=== PATIENT | female | born 1930 | race Caucasian/White ===

== ENCOUNTER 2019-02-19 10:39 | Day surgery (SDC) | payer MEDICARE ==
[2019-02-18 13:47] VITALS: BMI 29.2
[2019-02-19] MEDS ORDERED: Bupivacaine HCl 0.5%/Epinephrine 1:200,000/PF 30 ml Vial ONE (12:00)
[2019-02-19] MEDS ORDERED: Bacitracin Zinc Ointment 30 gm TUBE ONE (12:00)
[2019-02-19 12:04] LABS: #Eosinphils 0.1 thou/uL (0.0-0.7); #Lymphocytes 1.7 thou/uL (1.20-3.40); #Monocytes 0.4 thou/uL (0.11-0.59); #Neutrophils 4.1 thou/uL (1.40-6.50); %Basophils 0.6 % (0.0-1.0); %Lymphocytes 27.1 % (21.0-51.0); %Monocytes 5.8 % (0.0-10.0); %Neutrophils 64.5 % (42.0-75.0); Hemoglobin 11.7 g/dL (12.0-16.0); Mean Corpuscular HGB CONC 33.5 g/dL (32.0-36.0); Mean Corpuscular Hemoglobin 34.4 pg (27.0-31.0); Mean Platelet Volume 9.4 fL (7.4-10.4); Platelet Count 171 thou/uL (130-400); RBC Distribution Width 14.4 % (11.5-14.5); White Blood Cell (WBC) Count 6.4 thou/uL (4.8-10.8)
[2019-02-19 12:18] LABS: Anion Gap 14 mmol/L (10-20); BUN (Urea Nitrogen) 24 mg/dL (9.8-20.1); Calc. Creatinine Clearance 43 mL/min (70-130); Calcium 9.7 mg/dL (7.8-10.44); Carbon Dioxide 21 mmol/L (23-31); Chloride 107 mmol/L (98-107); Estimated GFR-MDRD 52; Glucose 81 mg/dL (83-110); Potassium 4.5 mmol/L (3.5-5.1); Sodium 137 mmol/L (136-145)
[2019-02-19] MEDS ORDERED: PROPOFOL 200 MG/20 ML VIAL ONE (14:55)
--- NOTE | 2019-02-19 16:36 | OP ---
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 ANESTHESIA: TIVA. PROCEDURES PERFORMED: 1. Removal of Medtronic internal pulse generator. 2. Replacement of internal pulse generator with rechargeable Medtronic module. 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 COMPLICATIONS: None. SUMMARY: Risks and benefits were discussed. Informed consent was obtained. She was taken to the OR, prepped and draped in standard fashion. The pump in the left buttock was easily identified. 0.5% Marcaine with epinephrine was used for skin and subcutaneous anesthesia. Incision was carried out through the skin and then blunt dissection, taking care to identify all leads, wires, and the IPG was identified. The IPG was then taken out of the pocket. The set screws were loosened. The leads were disconnected from the IPG. The new IPG was brought into the field, connected to the electrodes, and both set screws were tightened using the supplied ratcheted screwdriver. A rechargeable Medtronic IPG was then placed in the pocket riding side out. Intraoperative programming and impedance check were performed, indicating that all contacts were viable and functioning properly. All counts were correct x2. Closure was accomplished in layers with interrupted 2-0 Vicryl, and the skin was closed with a running subcuticular 4-0 Rapide. Mastisol, Steri-Strips, 4x4s, and Medipore tape were used for dressing. No complications. Job ID: [id number]
== END 2019-02-19 15:40 | disposition home or self-care (01) ==
LOC: SDC 10:39
PROVIDERS: ATTEND Anesthesiology Pain Medicine
PROC: 0JH70CZ Insertion of Single Array Rechargeable Stimulator Generator into Back Subcutaneous Tissue and Fascia, Open Approach (ICD-10-PCS; principal; 2019-02-19)
DX: T85.192A Other mechanical complication of implanted electronic neurostimulator of spinal cord electrode (lead), initial encounter (principal); G89.4 Chronic pain syndrome; M54.16 Radiculopathy, lumbar region; M48.062 Spinal stenosis, lumbar region with neurogenic claudication; I10 Essential (primary) hypertension; E78.5 Hyperlipidemia, unspecified; M19.90 Unspecified osteoarthritis, unspecified site; I25.2 Old myocardial infarction; Z79.82 Long term (current) use of aspirin; Z79.899 Other long term (current) drug therapy; Z87.891 Personal history of nicotine dependence; Z88.1 Allergy status to other antibiotic agents; Z88.2 Allergy status to sulfonamides; Z88.5 Allergy status to narcotic agent; Z95.5 Presence of coronary angioplasty implant and graft
CPT/HCPCS: 80048; 85025; J0670; J2704

== ENCOUNTER 2019-07-08 14:51 | Inpatient (IN) | payer MEDICARE ==
[2019-07-08] MEDS ORDERED: Pantoprazole 40 MG VIAL ONE (15:42)
[2019-07-08] MEDS ORDERED: Octreotide Acetate 100 MCG/ML VIAL ONE (15:42)
[2019-07-08] MEDS ORDERED: Octreotide Acetate 1,250 MCG in Sodium Chloride 0.9% 250 ML 250 ML IVPB SCH (15:45)
[2019-07-08] MEDS ORDERED: Pantoprazole 80 MG, Admixture Fee 1 EACH in Sodium Chloride 0.9% 100 ML IVPB SCH (15:45)
[2019-07-08 16:43] LABS: #Eosinphils 0.1 thou/uL (0.0-0.7); #Lymphocytes 1.6 thou/uL (1.20-3.40); #Monocytes 0.5 thou/uL (0.11-0.59); #Neutrophils 5.4 thou/uL (1.40-6.50); %Basophils 0.5 % (0.0-1.0); %Eosinophils 0.9 % (0.0-10.0); %Lymphocytes 20.8 % (21.0-51.0); %Neutrophils 71.9 % (42.0-75.0); Hemoglobin 8.8 g/dL (12.0-16.0); Mean Corpuscular Hemoglobin 34.7 pg (27.0-31.0); Mean Platelet Volume 9.4 fL (7.4-10.4); Platelet Count 158 thou/uL (130-400); RBC Distribution Width 17.6 % (11.5-14.5); Red Blood Cell (RBC) Count 2.52 mill/uL (4.20-5.40); White Blood Cell (WBC) Count 7.5 thou/uL (4.8-10.8)
[2019-07-08] MEDS ORDERED: Acetaminophen 325 MG TAB PO PRN ×2 (19:16→21:48)
[2019-07-08] MEDS ORDERED: Ondansetron PF 4 MG/2 ML Vial IVP PRN ×2 (19:16→21:49)
[2019-07-08] MEDS ORDERED: Pantoprazole 80 MG in Sodium Chloride 0.9% 100 ML IVPB SCH (19:16)
[2019-07-08] MEDS ORDERED: Guaifenesin DM 100-10/5 ML UDCUP PO PRN ×2 (19:16→21:49)
[2019-07-08] MEDS ORDERED: Dextrose 5 % And 0.9 % NaCl 1,000 ML IV SCH (19:30)
[2019-07-08 19:39] LABS: Hemoglobin 9.1 g/dL (12.0-16.0)
--- NOTE | 2019-07-08 19:48 | HP ---
REASON FOR ADMISSION: GI bleed. HISTORY OF PRESENT ILLNESS: Please note majority of this history is obtained by talking to ER physician as the patient is not fully oriented at present. She was at [facility] and recuperating after sustaining a T12 compression fracture. She [facility] Code Green [facility] not being herself with increasing weakness and alertness. The full workup was negative per ER physician's notes. This morning, she had 3 episodes of bloody stools. She felt weak and lightheaded. Decision was made to transfer her here for higher level of care. Currently, the patient is not in any distress, but very lethargic. Her son and two other family members are at bedside. Has no complaints of abdominal pain, nausea, or vomiting at present. The patient also received a unit of packed cell in the ER. PAST MEDICAL AND SURGICAL HISTORY: History of dementia, hypertension, dyslipidemia, coronary artery disease, history of atrial fibrillation, spine stimulator, osteoarthritis, bilateral knee replacements, GERD, cardiac cath in 2005 with stent, back surgery in 2007, right hip replacement in 2008, cholecystectomy in 1989. No recent colonoscopy or EGD per family. CURRENT MEDICATIONS: The patient is on: 1. Aspirin 81 mg p.o. daily. 2. Plavix 75 mg p.o. daily. 3. K-Dur 20 mEq p.o. daily. 4. Lasix 80 mg daily. 5. Toprol-XL 25 mg daily. 6. Ranexa 1000 mg twice daily. 7. Imdur extended release 30 mg twice daily. 8. Zocor 10 mg daily. PERSONAL HISTORY: Does not abuse alcohol or drugs. No history of smoking. The patient has had recurrent falls from last 6 to 8 months now. FAMILY HISTORY: Both parents are . Mother had cancer. REVIEW OF SYSTEMS: Cannot be obtained as the patient is not fully oriented. PHYSICAL EXAMINATION: GENERAL: The patient is an 88-year-old female who is currently not in any acute distress, but is lethargic. VITAL SIGNS: Blood pressure 110/62, pulse 76 per minute, respiratory rate 18 per minute, temperature 98.1 degrees Fahrenheit, saturating 97% on 2 L nasal cannula. NECK: Supple. No elevated JVD. HEENT: Eyes; extraocular muscles intact. Pupils reacting to light. Oral cavity, mucous membranes are dry. No exudates or congestion CARDIOVASCULAR: S1 and S2 heard. Irregular rhythm. RESPIRATORY: Air entry 1+ bilateral. Scattered rhonchi plus. No rales or wheezes. ABDOMEN: Soft. Bowel sounds heard. No tenderness, rigidity, or guarding. EXTREMITIES: Mild peripheral edema in lower extremities. No calf tenderness. VASCULAR SYSTEM: Peripheral pulses 1+ bilateral. No ischemic ulcerations or gangrene. CENTRAL NERVOUS SYSTEM: No gross focal deficits noted. The patient is seen moving all extremities. She is not oriented at present. PSYCHIATRIC: Cannot be accurately assessed as the patient is lethargic at present. LABORATORY DATA: Chest x-ray done shows cardiomegaly with mild pulmonary vascular congestion. BUN 44, creatinine 1.5, serum glucose 136. Liver enzymes within normal limits. Albumin is 3.5. Stool occult blood done is positive. PT/INR 15 and 1.2, PTT 34. White count of 8, H and H 7 and 22, platelet count of 171. Repeat H and H after 1 unit of packed cell, 8.8 and 25.8. CLINICAL IMPRESSION AND PLAN: The patient will be admitted to medical floor for GI bleed with acute blood loss anemia, acute kidney injury. She is lethargic and has acute metabolic encephalopathy with underlying dementia contributing with GI bleed now. Aspiration and fall precautions will be followed. Per family, the patient was ambulating with a walker at the [facility]. We will continue her Imdur, Toprol and she will be on Protonix drip. We will have H and H q.6 hourly. D5 water at 100 mL per hour. The patient's systolic blood pressure is around 100. If her H and H drop to less than 7 g, she will be transfused again. She will be on clear liquid diet for now. The patient is do not attempt to resuscitate, this was discussed with the patient's son at bedside, Mr. Azar Urbina. If she has significant drop in her hemoglobin with ongoing bleed, the patient likely will need upper endoscopy. Dr. Woods is on- call for Gastroenterology and will be consulted. Job ID: [id number] MTDD
[2019-07-08] MEDS ORDERED: Isosorbide Mononitrate (ER) 30 MG TAB PO SCH (21:00)
[2019-07-08 21:04] VITALS: BMI 31.7
[2019-07-08] MEDS: Isosorbide Mononitrate (ER) 30 MG TAB PO SCH (21:53)
[2019-07-08] MEDS: Dextrose 5 % And 0.9 % NaCl 1,000 ML IV SCH (22:01)
[2019-07-09] MEDS: Enoxaparin Sodium 30 MG/0.3 ML SYRINGE SC SCH (08:11)
[2019-07-09] MEDS: Isosorbide Mononitrate (ER) 30 MG TAB PO SCH ×2 (08:11→20:40)
[2019-07-09] MEDS: Dextrose 5 % And 0.9 % NaCl 1,000 ML IV SCH ×2 (08:11→18:37)
[2019-07-09] MEDS: Oxybutynin 5 MG TAB PO SCH (08:22)
[2019-07-09] MEDS ORDERED: Enoxaparin Sodium 30 MG/0.3 ML SYRINGE SC SCH (09:00)
[2019-07-09] MEDS ORDERED: Oxybutynin 5 MG TAB PO SCH (09:00)
[2019-07-09 09:16] LABS: ALT (SGPT) 8 U/L (8-55); AST (SGOT) 14 U/L (5-34); Albumin 3.4 g/dL (3.4-4.8); Alkaline Phosphatase 98 U/L (40-110); Anion Gap 16 mmol/L (10-20); BUN (Urea Nitrogen) 47 mg/dL (9.8-20.1); Bilirubin, Total 0.8 mg/dL (0.2-1.2); Calc. Creatinine Clearance 30 mL/min (70-130); Calcium 8.7 mg/dL (7.8-10.44); Carbon Dioxide 22 mmol/L (23-31); Chloride 102 mmol/L (98-107); Estimated GFR-MDRD 32; Globulin 2.5 g/dL (2.4-3.5); Glucose 135 mg/dL (83-110); Potassium 4.6 mmol/L (3.5-5.1); Protein, Total 5.9 g/dL (6.0-8.3); Sodium 135 mmol/L (136-145)
--- NOTE | 2019-07-09 14:05 | PDOC.HOSPP ---
- Subjective Encounter Date: 07/09/19 Encounter Time: 11:05 Subjective: 88 y/o female with HTN, CAD. afib who was transfered from [facility] due to acute mental status change associated with generalized weakness and bloody stools associated with acute drop in HB. Patient was undertaking rehabilitation there after a recent T12 fracture. Feeling better. No BM since transfer. - Objective Vital Signs & Weight: Vital Signs (12 hours) Temp Pulse Resp BP Pulse Ox 07/09/19 12:00 98.0 F 59 L 22 H 109/71 95 07/09/19 08:00 97 07/09/19 07:56 97.5 F L 89 22 H 111/61 97 07/09/19 07:18 100 07/09/19 04:45 97.8 F 66 20 118/65 100 Weight Weight 162 lb 7.691 oz Result Diagrams: 07/08/19 19:33 07/09/19 08:20 Hospitalist ROS - Medication Medications: Active Medications Generic Name Dose Route Start Last Admin Trade Name Freq PRN Reason Stop Dose Admin Enoxaparin Sodium 30 mg 07/09/19 09:00 07/09/19 08:11 Lovenox SC 30 mg 0900 BALBIR Administration Dextrose/Sodium Chloride 1,000 mls @ 100 mls/hr 07/08/19 22:00 07/09/19 08:11 D5 0.9% Ns IV 1,000 mls .Q10H BALBIR Administration Isosorbide Mononitrate 30 mg 07/08/19 21:00 07/09/19 08:11 Imdur Er PO 30 mg BID BALBIR Administration Metoprolol Succinate 25 mg 07/09/19 09:00 07/09/19 08:12 Toprol Xl PO 25 mg DAILY BALBIR Administration Oxybutynin Chloride 10 mg 07/09/19 09:00 07/09/19 08:22 Ditropan PO 10 mg DAILY BALBIR Administration Ranolazine 1,000 mg 07/08/19 21:00 07/09/19 08:12 Ranexa PO 1,000 mg BID BALBIR Administration - Exam General Appearance: awake alert Eye: anicteric sclera ENT: normocephalic atraumatic Neck: supple, no JVD Heart: irregular, murmur present Respiratory: no ronchi, normal chest expansion Respiratory - other findings: fair air entry bilaterally Gastrointestinal: soft, non-tender, non-distended, normal bowel sounds Extremities: no cyanosis Extremities - other findings: mild bilateral leg edema noted Neurological: cranial nerve grossly intact, no focal deficits Psychiatric - other findings: oriented to person and place at least. some memory lapses noted Hosp A/P (1) GI bleed Code(s): K92.2 - GASTROINTESTINAL HEMORRHAGE, UNSPECIFIED Status: Acute (2) BEAR (acute kidney injury) Code(s): N17.9 - ACUTE KIDNEY FAILURE, UNSPECIFIED Status: Acute (3) Dementia Code(s): F03.90 - UNSPECIFIED DEMENTIA WITHOUT BEHAVIORAL DISTURBANCE Status: Acute (4) Paroxysmal atrial fibrillation Code(s): I48.0 - PAROXYSMAL ATRIAL FIBRILLATION Status: Acute (5) CAD (coronary artery disease) Code(s): I25.10 - ATHSCL HEART DISEASE OF [place] CORONARY ARTERY W/O ANG PCTRS Status: Chronic (6) GERD (gastroesophageal reflux disease) Code(s): K21.9 - GASTRO-ESOPHAGEAL REFLUX DISEASE WITHOUT ESOPHAGITIS Status: Chronic Qualifiers: Esophagitis presence: without esophagitis Qualified Code(s): K21.9 - Gastro -esophageal reflux disease without esophagitis (7) Hypertension Code(s): I10 - ESSENTIAL (PRIMARY) HYPERTENSION Status: Chronic (8) Acute metabolic encephalopathy Code(s): G93.41 - METABOLIC ENCEPHALOPATHY Status: Acute - Plan Continue PPI/octreotide and gentle IVF. Monitor closely for fluid overload given history of CHF. Awaiting GI evaluation Monitor H/H and transfuse as needed Monitor renal function and electrolytes.
--- NOTE | 2019-07-09 14:34 | CON ---
DATE OF CONSULTATION: 07/09/2019 REASON FOR CONSULTATION: Bloody stool. HISTORY OF PRESENT ILLNESS: Ms. Mixon is an 88-year-old woman, who was admitted from [facility] with reported GI bleeding. Reportedly, she had three episodes of bloody stool at [facility]. She was subsequently brought to the emergency room and transferred to this facility. The patient was initially confused and encephalopathic. Currently, she is alert and oriented. She does not have any recollection of this event nor of any GI bleeding. Currently, she denies having any nausea, vomiting, or abdominal pain. Thus far this admission since overnight, she has not had any further hematochezia. She denies having abdominal pain. She did receive 1 unit of RBC transfusion yesterday in the ER. Her blood count has remained stable since then. PAST MEDICAL HISTORY: 1. Coronary artery disease. 2. History of atrial fibrillation. 3. Chronic back pain with pain stimulator. 4. Cardiac stent placement. 5. Right hip replacement. 6. Status post cholecystectomy. 7. Hypertension. 8. Reported history of dementia. MEDICATIONS: Prior to admission include; 1. Aspirin. 2. Plavix. 3. K-Dur. 4. Lasix. 5. Toprol. 6. Ranexa. 7. Imdur. 8. Zocor. ALLERGIES: SULFA. SOCIAL HISTORY: The patient is a resident at the [facility]. No known tobacco or alcohol usage. FAMILY HISTORY: Negative for any known GI problem, liver disease, or GI malignancy. REVIEW OF SYSTEMS: Ten-point review of system was otherwise negative. Reliability questioned. PHYSICAL EXAMINATION: VITAL SIGNS: Temperature is 98.0, blood pressure 109/71, and pulse is 59. GENERAL: She is alert and conversant, in no distress. HEENT: Shows anicteric sclerae. Oropharynx is moist. NECK: Supple. CV: Shows normal S1 and S2. Regular rate and rhythm. CHEST: Shows a breath sounds. ABDOMEN: Soft and mildly protuberant, but no distention. No tympany. There is no tenderness. She has active bowel sounds. EXTREMITIES: Shows no edema. LABORATORY DATA: WBCs 7.5, hemoglobin 9.1 (8.8 yesterday, lowest is 7.3 prior to 1 unit of RBC transfusion yesterday), and platelet count 158. Electrolytes within normal range. Creatinine 1.52. LFT is normal. Albumin is 3.4. ASSESSMENT: 1. The patient presented with reported hematochezia characterized as three episodes of bloody stool prior to admission. The patient has no further bleeding since then. She does not have any abdominal pain. Most likely, she had limited diverticular bleeding that has since resolved. 2. Anemia from acute gastrointestinal blood loss, stable. RECOMMENDATION: 1. No plan on GI intervention endoscopy as bleeding clinically has stopped. 2. Can resume Plavix tomorrow if she continues to do well without evidence of rebleed. 3. Overall conservative management, we will follow. We will resume diet for now. Job ID: [id number]
[2019-07-09] MEDS ORDERED: FLU VACC TS2019-20(65YR UP)/PF 180 MCG/0.5 ML SYRINGE IM ONE (21:00)
[2019-07-10 05:21] LABS: Anion Gap 14 mmol/L (10-20); BUN (Urea Nitrogen) 48 mg/dL (9.8-20.1); Calc. Creatinine Clearance 33 mL/min (70-130); Calcium 8.3 mg/dL (7.8-10.44); Carbon Dioxide 21 mmol/L (23-31); Chloride 104 mmol/L (98-107); Estimated GFR-MDRD 36; Glucose 130 mg/dL (83-110); Potassium 4.4 mmol/L (3.5-5.1); Sodium 135 mmol/L (136-145)
[2019-07-10 05:43] LABS: Hemoglobin 7.6 g/dL (12.0-16.0); Mean Corpuscular HGB CONC 33.2 g/dL (32.0-36.0); Mean Corpuscular Hemoglobin 34.5 pg (27.0-31.0); Mean Platelet Volume 8.9 fL (7.4-10.4); Platelet Count 146 thou/uL (130-400); RBC Distribution Width 18.2 % (11.5-14.5)
[2019-07-10] MEDS: Dextrose 5 % And 0.9 % NaCl 1,000 ML IV SCH (06:31)
[2019-07-10] MEDS: Enoxaparin Sodium 30 MG/0.3 ML SYRINGE SC SCH (08:34)
[2019-07-10] MEDS: Oxybutynin 5 MG TAB PO SCH (08:35)
[2019-07-10] MEDS: Isosorbide Mononitrate (ER) 30 MG TAB PO SCH ×2 (08:35→20:12)
--- NOTE | 2019-07-10 11:26 | CT ---
HEAD CT NONCONTRAST: Date: 07/10/19 INDICATION: Stroke. FINDINGS: There is parenchymal atrophy with compensatory dilatation of the ventricular system. Mild multifocal hypoattenuation of the cerebral parenchyma indicates microvascular ischemic disease. No hemorrhage or mass effect. Age-indeterminate lacunar infarcts are seen at the bilateral basal ganglia. IMPRESSION: 1. No acute intracranial hemorrhage or mass effect. 2. Multifocal age-indeterminate lacunar infarctions superimposed upon microvascular ischemic disease of the cerebral white matter. Phone call placed to ER physician, Vipul Hein, at 1107 hours on 07/10/19. CODE CR.
--- NOTE | 2019-07-10 11:30 | CT ---
CTA HEAD WITH AND WITHOUT CONTRAST: CTA NECK WITH AND WITHOUT CONTRAST: INDICATION: Level 1 stroke. Last seen normal 15 minutes ago. Unable to answer questions. Choppy speech. Bilateral weakness, patient is weaker on the right side than the left. COMPARISON: None. TECHNIQUE: CT angiogram of the head and neck are performed in the axial plane. Three-dimensional reformatted erin ges are submitted for interpretation. FINDINGS: POST CONTRAST CT BRAIN: Pathologic enhancement: No pathologic enhancement the brain. POST CONTRAST CT SOFT TISSUE NECK: Sinuses: Adequate aeration of the paranasal sinuses and mastoid air cells. Orbits: Bilateral ocular lenses implants are appropriately located. Both globes are intact. Retrobulb ar fat is preserved. Symmetric attenuation the optic nerves and ocular rectus muscles. Salivary glands:Symmetric attenuation of the parotid and submandibular glands. Thyroid gland: Heterogeneous thyroid gland. There is a dominant hypodensity in the right thyroid lobe , measuring 1.8 cm. Incomplete evaluation. Lymph nodes: No evidence of lymphadenopathy by size criteria. Paraspinal muscles: Symmetric attenuation of the sternocleidomastoid muscles. Appropriate attenuation of the paraspinal muscles. Cervical spine:Vertebral body height is maintained. No fracture. There are varying degrees of central canal stenosis and neural foraminal narrowing. Limited evaluation by technique. Upper mediastinum and lung apices: Upper mediastinum is unremarkable. There are bilateral pleural eff usions. Lung parenchymal changes may be chronic. Superimposed acute infiltrate or edema cannot be excluded. CTA OF THE BRAIN: Intracranial internal carotid arteries: Asymmetric prominence of the left cavernous and left paraclin oid internal carotid artery. No significant stenosis. Anterior circulation: Appropriate enhancement and luminal diameter of the A1 and M1 segments. Proxima l A2 segments and proximal MCA branches have appropriate enhancement and luminal diameter. Intracranial vertebral arteries: Appropriate enhancement and luminal diameter. Posterior circulation: Appropriate enhancement and luminal diameter of the left and right P1 segments . CTA OF THE NECK: Right carotid artery: Innominate artery origin has appropriate enhancement and luminal diameter. Ther e is atherosclerosis with short segment severe stenosis involving the right carotid bifurcation and proximal internal carotid artery. Based upon NASCET criteria there is 69% stenosis. Left carotid: Atherosclerosis at the origin of the left carotid artery. There is evidence of previous carotid endarterectomy. There is no evidence of hemodynamically significant stenosis in the left carotid artery. Subclavian arteries: Patent. Vertebral arteries: Patent throughout their course in the neck. Right vertebral artery is dominant. L eft vertebral artery originates from the arch. IMPRESSION: 1. Moderate to severe stenosis involving the right carotid bifurcation and proximal internal card art kenny, based upon NASCET criteria. 2. No significant stenosis at the level of the [place]. 3. Asymmetric prominence of the intracranial left internal carotid artery, of doubtful significance. Results of study discussed with Dr. Hein on 07/10/2019 at 11:29 a.m. CODE CR Transcribed Date/Time: 07/10/2019 11:42 AM
--- NOTE | 2019-07-10 12:04 | PDOC.HOSPP ---
- Subjective Encounter Date: 07/10/19 Encounter Time: 11:59 Subjective: 88 y/o female with HTN, CAD. afib who was transferred from [facility] due to acute mental status change associated with generalized weakness and bloody stools associated with acute drop in HB. Patient was undertaking rehabilitation there after a recent T12 fracture. Patient who was conversational and feeling well, was later found to be unresponsive and with dysphasia. Code Stroke was called but subsequent Ct head showed no acute pathology though chronic white matter disease and prior lacunar infarct were noted. She was transfered to stroke unit. She seem to obey command inconsistently and still has some receptive and expressive aphasia. On re evaluation, she is more awake and talking more. Also she is obeying command consistently. Relatives at bedside reported significant improvement. they however reported similar episode at [facility] prior to transfer over here. - Objective Vital Signs & Weight: Vital Signs (12 hours) Temp Pulse Resp BP Pulse Ox 07/10/19 10:58 97.8 F 73 18 138/80 95 07/10/19 08:00 97.7 F 70 20 134/79 99 Weight Admit Weight 162 lb 7.691 oz Weight 162 lb 7.691 oz I&O: 07/09/19 07/10/19 07/11/19 06:59 06:59 06:59 Intake Total 240 360 Balance 240 360 Result Diagrams: 07/10/19 05:31 07/10/19 05:02 Additional Labs: Accuchecks 07/10/19 10:55 POC Glucose 198 H Hospitalist ROS - Medication Medications: Active Medications Generic Name Dose Route Start Last Admin Trade Name Chantal PRN Reason Stop Dose Admin Enoxaparin Sodium 30 mg 07/09/19 09:00 07/10/19 08:34 Lovenox SC 30 mg 0900 BALBIR Administration Isosorbide Mononitrate 30 mg 07/08/19 21:00 07/10/19 08:35 Imdur Er PO 30 mg BID BALBIR Administration Metoprolol Succinate 25 mg 07/09/19 09:00 07/10/19 08:35 Toprol Xl PO 25 mg DAILY BALBIR Administration Oxybutynin Chloride 10 mg 07/09/19 09:00 07/10/19 08:35 Ditropan PO 10 mg DAILY BALBIR Administration Pantoprazole Sodium 40 mg 07/10/19 09:00 07/10/19 08:36 Protonix PO 40 mg DAILY BALBIR Administration Ranolazine 1,000 mg 07/08/19 21:00 07/10/19 08:35 Ranexa PO 1,000 mg BID BALBIR Administration - Exam General - other findings: lethargic ENT: normocephalic atraumatic Neck: supple Heart: RRR, murmur present Respiratory - other findings: fair air entry bilaterally Gastrointestinal: soft, non-tender, non-distended, normal bowel sounds Extremities: no cyanosis Extremities - other findings: trace feet edema bilaterally Neurological: cranial nerve grossly intact, speech deficit Neurological - other findings: No facial droop. moves all limbs spontaneously and with stimulation. Hosp A/P (1) TIA (transient ischemic attack) Code(s): G45.9 - TRANSIENT CEREBRAL ISCHEMIC ATTACK, UNSPECIFIED Status: Acute (2) Atherosclerosis of right carotid artery Code(s): I65.21 - OCCLUSION AND STENOSIS OF RIGHT CAROTID ARTERY Status: Acute (3) GI bleed Code(s): K92.2 - GASTROINTESTINAL HEMORRHAGE, UNSPECIFIED Status: Acute (4) BEAR (acute kidney injury) Code(s): N17.9 - ACUTE KIDNEY FAILURE, UNSPECIFIED Status: Acute (5) Dementia Code(s): F03.90 - UNSPECIFIED DEMENTIA WITHOUT BEHAVIORAL DISTURBANCE Status: Acute (6) Paroxysmal atrial fibrillation Code(s): I48.0 - PAROXYSMAL ATRIAL FIBRILLATION Status: Acute (7) CAD (coronary artery disease) Code(s): I25.10 - ATHSCL HEART DISEASE OF [place] CORONARY ARTERY W/O ANG PCTRS Status: Chronic (8) GERD (gastroesophageal reflux disease) Code(s): K21.9 - GASTRO-ESOPHAGEAL REFLUX DISEASE WITHOUT ESOPHAGITIS Status: Chronic Qualifiers: Esophagitis presence: without esophagitis Qualified Code(s): K21.9 - Gastro -esophageal reflux disease without esophagitis (9) Hypertension Code(s): I10 - ESSENTIAL (PRIMARY) HYPERTENSION Status: Chronic (10) Acute metabolic encephalopathy Code(s): G93.41 - METABOLIC ENCEPHALOPATHY Status: Acute - Plan Will restart plavix. Monitor H/H Start TIA protocol DC IVF Consult Neurology and vascular surgery Monitor renal function and electrolytes.
[2019-07-10 12:22] LABS: Hemoglobin 7.8 g/dL (12.0-16.0); Mean Corpuscular Hemoglobin 34.8 pg (27.0-31.0); Mean Platelet Volume 8.7 fL (7.4-10.4); Platelet Count 142 thou/uL (130-400); Red Blood Cell (RBC) Count 2.23 mill/uL (4.20-5.40)
[2019-07-10 12:27] LABS: INR-International Normal Ratio 1.3; PTT 33.8 SEC (22.9-36.1); Prothrombin Time 16.2 SEC (12.0-14.7)
[2019-07-10] MEDS ORDERED: Clopidogrel Bisulfate 75 MG TAB PO SCH (12:30)
[2019-07-10 12:51] LABS: ALT (SGPT) 9 U/L (8-55); AST (SGOT) 12 U/L (5-34); Albumin 3.3 g/dL (3.4-4.8); Alkaline Phosphatase 92 U/L (40-110); Anion Gap 13 mmol/L (10-20); BUN (Urea Nitrogen) 47 mg/dL (9.8-20.1); Bilirubin, Total 0.6 mg/dL (0.2-1.2); CK (CPK) 20 U/L (29-168); Calc. Creatinine Clearance 35 mL/min (70-130); Calcium 8.3 mg/dL (7.8-10.44); Carbon Dioxide 23 mmol/L (23-31); Chloride 103 mmol/L (98-107); Estimated GFR-MDRD 39; Globulin 1.9 g/dL (2.4-3.5); Glucose 129 mg/dL (83-110); Potassium 4.4 mmol/L (3.5-5.1); Protein, Total 5.2 g/dL (6.0-8.3); Sodium 135 mmol/L (136-145)
[2019-07-10 12:52] LABS: Band 8 % (5-11); Eosinophils 5 % (0-10); Lymphocytes 16 % (21-51); MDiff Complete? YES; Macrocytosis SLIGHT = 6-15 cells (100X) (0-5/hpf); Metamyelocyte 1 % (0-0); Monocytes 5 % (0-10); Neutrophil 65 % (42-75); Nucleated RBC 2 % (0); Ovalocytes SLIGHT = 2-5 cells (100X) (0-1/hpf); Platelet Morphology Comment Appears Adequate; Polychromasia MODERATE = 3-4 cells (100X) (0-2/hpf); Tear Drops SLIGHT = 2-5 cells (100X) (0-1/hpf); White Blood Cell (WBC) Count 6.4 thou/uL (4.8-10.8)
[2019-07-10 13:13] LABS: CKMB 1.7 ng/mL (0-6.6)
--- NOTE | 2019-07-10 14:00 | PRG ---
DATE OF SERVICE: 07/10/2019 SUBJECTIVE: Ms. Mixon has had no further evidence of bleeding. She has remained hemodynamically stable. She had some change in mental status and there was suspicion for possible stroke. She had a CT head, which shows some age-indeterminate lacunar infarcts. She was moved to the stroke floor. Plavix was restarted. Neurologic and Vascular Surgery consultations are pending. She has no abdominal pain. Speech evaluation is pending, but per nursing, she has been taking liquids without difficulty. PHYSICAL EXAMINATION: VITAL SIGNS: Temperature 97.3, pulse 70, blood pressure 138/80, and 94% oxygen saturation on room air. GENERAL: No acute distress. HEART: Regular rate and rhythm. LUNGS: Clear to auscultation bilaterally. ABDOMEN: Nondistended. Bowel sounds present. Soft and nontender to palpation. EXTREMITIES: No peripheral edema. LABORATORY STUDIES: Hemoglobin stable at 7.8, WBC 6.4, platelets 142. INR 1.3. Sodium 135, potassium 4.4, BUN 47, creatinine 1.30. Troponin 0.223, CK-MB only 1.7, CK only 20. Total bilirubin 0.6, alkaline phosphatase 92, AST 12, ALT 9. ASSESSMENT AND PLAN: 1. Lower gastrointestinal bleeding, likely represented self-limited diverticular bleed, now resolved. 2. Anemia from acute gastrointestinal blood loss, stable today. No plan on GI intervention or endoscopy. There is no further evidence of bleeding. Okay with resuming the Plavix today. GI will sign off, but please call back anytime with questions or concerns. Job ID: [id number]
[2019-07-10] MEDS ORDERED: Iopamidol-370 76% 500 ML 1 ML ONE (15:53)
--- NOTE | 2019-07-10 17:33 | EKG ---
Test Reason : POST CODE GREEN Blood Pressure : / mmHG Vent. Rate : 066 BPM Atrial Rate : 066 BPM P-R Int : 272 ms QRS Dur : 120 ms QT Int : 450 ms P-R-T Axes : 078 109 078 degrees QTc Int : 471 ms Sinus rhythm with marked sinus arrhythmia with 1st degree A-V block Rightward axis Low voltage QRS Non-specific intra-ventricular conduction delay Nonspecific ST abnormality Abnormal ECG When compared with ECG of 29-SEP-2016 06:43, Premature ventricular complexes are no longer Present QRS duration has increased Non-specific change in ST segment in Inferior leads Confirmed by DR. Jenelle MONTGOMERY (3) on 07/10/2019 5:33:06 PM Referred By: LESA Confirmed By:DR. Jenelle MONTGOMERY
[2019-07-10 19:44] VITALS: BP 105/66; TEMP 97.2
--- NOTE | 2019-07-10 21:24 | CON ---
DATE OF CONSULTATION: 07/10/2019 CONSULTING PHYSICIAN: Hospitalist Service. IMPRESSION: 1. Transient encephalopathy of uncertain etiology. 2. Recent new onset of bloody diarrhea. 3. Congestive heart failure. 4. T12 compression fracture. PLAN: Restart antiplatelet therapy, if okay with GI. HISTORY OF PRESENT ILLNESS: Ms. Mixon is an 88-year-old woman who was living at home independently prior to her admission to the [facility]. She apparently suffered a fracture T12 and was in pain. She has had some decompensation of her heart failure while she was there and was shifted over for further treatment. She was found to have bloody stools. Her H and H were down. She was conversant yesterday and started to suddenly decompensate. She got more lethargic and was not responding appropriately. Her neurologic exam at that time showed no focal deficits, but more of a generalized weakness pattern and confusion. Things have improved since yesterday, but she has not returned to her baseline. Her grandson reports that she is usually quite mentally sharp. She gets around the house independently, although she is a bit unsteady. Since admission, she had an echocardiogram, which showed ejection fraction of 30% to 35%. Her CTA showed some stenosis in the right bulb around 70%. CT of the brain only showed some chronic small-vessel ischemic changes. Vital signs have been stable and she is otherwise afebrile. PAST MEDICAL HISTORY: Hypertension, coronary artery disease, atrial fibrillation. FAMILY HISTORY: Noncontributory. ALLERGIES: SULFA. SOCIAL HISTORY: No tobacco or alcohol. REVIEW OF SYMPTOMS: Ten system review of systems otherwise negative. PHYSICAL EXAMINATION: GENERAL: She is a well-nourished elderly lady, in no acute distress. VITAL SIGN: Stable. She is afebrile. HEENT: Pupils equal and reactive. Conjunctivae clear. Oropharynx clear. Cranium, normocephalic and atraumatic. NECK: Supple, no lymphadenopathy. EXTREMITIES: No cyanosis, clubbing, or edema. NEUROLOGIC: She was alert and cooperative. She was oriented to person, but not to the place and current circumstances. She did recognize her grandson. She had fluent and clear speech. She followed commands reasonably well. She had no facial asymmetry. She had good public relations account executive strength bilaterally. There was no fix or drift noted. Sensation was intact to touch. No abnormal movements were seen. IMAGING STUDIES: EKG shows a sinus rhythm with first-degree AV block. SUMMARY: This is a somewhat frail elderly lady who has been in the hospital and ill for 2 weeks now. She had some cognitive decompensation yesterday without any definite focal findings. Her exam at this point only shows some mild confusion. I am not convinced that she had a TIA, I would continue antiplatelet therapy, statin and I feel that her workup is complete. Job ID: [id number]
[2019-07-11] MEDS ORDERED: Clopidogrel Bisulfate 75 MG TAB PO SCH (09:00)
--- NOTE | 2019-07-11 14:56 | CON ---
DATE OF CONSULTATION: 07/10/2019 REQUESTING PHYSICIAN: Dr. Cunningham. PRIMARY CARE PHYSICIAN: Dr. Kaiden Ocampo. CHIEF COMPLAINT: Syncope. HISTORY OF PRESENT ILLNESS: The patient is an 88-year-old woman who is labeled as having some dementia. She has multiple medical problems including coronary artery disease, hypertension, atrial fibrillation, and was in [facility], convalescing after a vertebral compression fracture. Evidently, screening lab work had shown her hemoglobin starting to drift down and then after she had a syncopal episode following bloody bowel movements, her hemoglobin was noted to be significantly down. As she was coming to, her speech was somewhat dysarthric which once she was hemodynamically stabilized, prompted a carotid evaluation. The patient does not have a clear recollection of the event, but to the best of her knowledge, had no antecedent focal deficits such as dysarthria, amaurosis, or extremity weakness or paresthesias. PAST MEDICAL HISTORY: Significant for coronary artery disease, atrial fibrillation, hypertension. She has had bilateral knee replacements, a right hip replacement, cholecystectomy, spinal stimulator, and she has had a recent T12 compression fracture. MEDICATIONS: On transfer here were 1. Baby aspirin. 2. Plavix. 3. Lasix 80 mg a day. 4. K-Dur 20 mEq a day. 5. Toprol-XL 25 mg a day. 6. Imdur 30 mg b.i.d. 7. Zocor 10 mg a day. 8. Ranexa 1000 mg b.i.d. The patient does not smoke. By report, her mother had cancer. REVIEW OF SYSTEMS: Was difficult to obtain. I was not able to elicit a clear-cut history of TIAs, but in the midst of that questioning, the patient began talking about one of her children going to [employer] every Sunday with her family starting at 8 o'clock and staying there all day long and how proud she was of them on. PHYSICAL EXAMINATION: VITAL SIGNS: 5 feet tall, 162-1/2 pounds. Her heart rate was in the 70s, blood pressure 105/66, temperature 97.2, O2 saturations 98% on 2.5 L nasal cannula. She had clear breath sounds and irregular rate and rhythm. I heard no obvious carotid bruits, but I could get her to cooperate with holding her breath while I was listening to her carotids. EXTREMITIES: She was able to squeeze both hands and plantar flex both ankles to command. NEUROLOGIC: I was not able to get her to do cranial nerve testing, although I did not observe any obvious deficits. LABORATORY DATA: Her baseline hemoglobin in mid June was in the 9, on of this month it was 8, and on the , it was 7.3, after transfusion came up to the high 8s to low 9s, but this morning was back down to 7.6. Her BUNs were in the mid upper 40s, creatinine 1.3 to 1.5 range, glucose 129. Her BNP was 2087. IMAGING STUDIES: Chest x-ray showed fairly massive cardiomegaly with pulmonary edema, blunting of the right costophrenic angle. The left diaphragm was obscured and there was some fluid in the fissures. CT scan of her head by report showed multifocal lacunar infarcts and superimposed microvascular disease but no obvious acute events. CT angiography showed some minimal disease in the left carotid system, heavy plaque in the right carotid bulb. On axial cuts, it appeared to represent about 50% or 60% stenosis of the internal carotid at its origin. The extent of calcification in the plaque at the bulb made it very difficult to assess the degree of stenosis on the coronal or sagittal reconstructions. IMPRESSION AND RECOMMENDATIONS: Th patient's presentation seems far more compatible with syncope due to hypotension with some altered mental status and slurred speech related to that. The only lateralizing part of her presentation was the speech being a little bit off. Her left carotid seems okay. Her right carotid only seems modestly diseased. The most that I would recommend with this is aspirin and annual surveillance. Job ID: [id number]
--- NOTE | 2019-07-14 07:36 | DIS ---
DATE OF ADMISSION: 07/08/2019 DATE OF DISCHARGE: 07/11/2019 PRIMARY CARE PHYSICIAN: Kaiden Ocampo MD DISCHARGE DIAGNOSES: 1. Gastrointestinal bleed. 2. Recurrent unresponsiveness. 3. Recurrent transient ischemic attack. 4. Possible syncopal episodes. 5. Atherosclerosis of right carotid artery. 6. Acute kidney injury. 7. Paroxysmal atrial fibrillation. 8. Coronary artery disease. 9. Gastroesophageal reflux disease. 10. Hypertension. 11. Acute metabolic encephalopathy. 12. Troponin elevation. 13. Chronic congestive heart failure. 14. Severe mitral regurgitation. 15. Moderate tricuspid regurgitation. 16. Severe pulmonary hypertension. 17. Cardiomyopathy with ejection fraction of 30% to 35%. 18. T12 compression fracture. CONSULT: 1. Gastrointestinal. 2. Neurology. 3. Vascular surgery. HOSPITAL COURSE: An 88-year-old female with known history of CHF, hypertension, coronary artery disease, paroxysmal atrial fibrillation, who was admitted initially to [facility] for restorative therapy following recent T12 compression fracture. The patient reportedly developed acute mental status change as well as generalized weakness and bloody stool associated with a drop in hemoglobin. This was concerning for GI bleed, hence the patient was transferred over here. However, there was no further GI bleed. There was no further bloody stool and hemoglobin remained stable. GI consult was obtained, but no intervention was recommended. The patient remained stable and discharge was contemplated. However, she suddenly had an episode of unresponsive spell associated with dysphagia. Code stroke was called. CT scan of the head showed no acute pathology other than chronic white matter disease and prior lacunar infarct. The patient was subsequently transferred to Stroke Unit. Further evaluation with CT angio of the head and neck showed right carotid atherosclerosis. Given recurrent nature of transient unresponsive spell, it was felt that this could be due to the carotid disease. Hence, Vascular Surgery consult was obtained as well as Neurology. Same day in the night, the patient who is do not resuscitate developed bradycardia associated with pulseless and later became asystole and . The patient was pronounced at 2222 hours on July 10, 2019. Job ID: [id number]
--- NOTE | 2019-07-14 20:31 | PQF ---
MICAH PINO OBI, CHIZOBA C [id number]- [id number] CLINICAL DOCUMENTATION CLARIFICATION FORM: POST DISCHARGE Addendum to original discharge summary date: ____ Late entry note date: __ DATE: 07/14/19 ATTN: Irene Mccabe Obi Please exercise your independent, professional judgment in responding to the clarification form. Clinical indicators are provided on the bottom of this form for your review In your clinical opinion based on clinical findings below, can you please identify the etiology of Melena if due to: Please check appropriate box(s): [ ] Colonic Diverticular Disease [ ] Adverse effect of Aspirin [ ] GERD [ ] Other diagnosis [ ] Unable to determine In addition, please specify: Present on Admission (POA): [ ] Yes [ ] No [ ] Unable to determine For continuity of documentation, please document condition throughout progress notes and discharge summary. Thank You. CLINICAL INDICATORS - SIGNS / SYMPTOMS / LABS H&P p1 07/08 Dr Jeffery this morning, she had 3 episodes of bloody stools. H&P p1 07/08 Dr Jeffery She felt weak and lightheaded H&P p2 07/08- vital sign: BP110/62 H&P p2 07/08 Latia She is lethargic and has acute metabolic encephalopathy with underlying dementia contributing with GI bleed now Consult p2 07/09 Dr Rosas most likely, she had limited diverticular bleeding that has since resolved RISK FACTORS H&P p1 07/08- Past medical history GERD H&P p1 07/08- Patient is on Aspirin 81mg PO daily, Plavix 75mg PO daily H&P p2 07/08- 88 year-old female H&P p2 07/08- Acute blood loss anemia TREATMENTS: NOV 11 D5 water ar 100ml/hr NOV 11 Protonix Drip H&P p1 07/08- 1unit RBC received prior transfer H&P p2 07/08- Monitor Hct an d Hgb q6 hourly H&P p2 07/08- H&H drop less than 7h, she will be tranfused again GI consult 06/08 Sri Goodwin (This form is maintained as a part of the permanent medical record) 2014 [employer]. All Rights Reserved [email or web address] [not provided] MTDD
--- NOTE | 2019-07-14 20:32 | PQF ---
MICAH PINO OBI, CHIZOBA C [id number] [id number]- [id number] CLINICAL DOCUMENTATION CLARIFICATION FORM: POST DISCHARGE Addendum to original discharge summary date: ____ Late entry note date: __ DATE: 07/14/19 ATTN: Irene Mccabe Obi Please exercise your independent, professional judgment in responding to the clarification form. Clinical indicators are provided on the bottom of this form for your review Please check appropriate box(s): [ ] Acute Renal Failure (ARF) / Acute Kidney Injury (BEAR) [ ] Acute Tubular Necrosis (ATN) [ ] Acute on Chronic Renal Failure please specify Stage of CKD (see below) [ ] Other diagnosis [ ] Unable to determine In addition, please specify: Present on Admission (POA): [ ] Yes [ ] No [ ] Unable to determine National Kidney Foundation Guidelines for CKD Staging Stage I Kidney damage with normal or increased GFRGFR > 90 Stage IIKidney damage with mildly decreased GFRGFR 60-89 Stage III Kidney damage with moderately decreased GFRGFR 30-59 Stage IVKidney damage with severely decreased GFRGFR 16-29 Stage VKidney failureGFR<15 ESRDEnd Stage Renal DiseaseOn dialysis Acute Renal Failure/Acute Kidney Failure defined as: Increases in SCr by (>) 0.3 mg/dl within 48 hours OR- Increases in SCr by (>) 1.5 times baseline, known or presumed to have occurred within the prior 7 days OR- Urine volume < 0.5 ml/kg/hour for 6 hours (KDIGO supplement 2012 for RIFLE/GEMINI criteria) For continuity of documentation, please document condition throughout progress notes and discharge summary. Thank You. CLINICAL INDICATORS - SIGNS / SYMPTOMS / LABS H&P p1 07/08 Dr Jeffery this morning, she had 3 episodes of bloody stools. H&P p1 07/08 Dr Jeffery She felt weak and lightheaded H&P p2 07/08- vital sign: BP110/62 H&P p2 07/08 Latia She is lethargic and has acute metabolic encephalopathy with underlying dementia contributing with GI bleed now Laboratory Chemistry 07/09 BUN 47, Creatinine 1.52 Laboratory Chemistry 07/10 BUN 48, Creatinine 1.38 RISK FACTORS H&P p2 07/08- 88 year-old female H&P p2 07/08- Acute blood loss anemia H&P p2 07/08- Acute kidney injury TREATMENTS: NOV 11 D5 water 100ml/hr H&P p1 07/08- 1unit RBC received prior transfer (This form is maintained as a part of the permanent medical record) 2014 [employer]. All Rights Reserved [email or web address] [not provided] MTDD
--- NOTE | 2019-07-17 17:36 | PQF ---
MICAH PINO OBI, CHIZOBA C [id number] [id number]- [id number] CLINICAL DOCUMENTATION CLARIFICATION FORM: POST DISCHARGE Addendum to original discharge summary date: ____ Late entry note date: __ DATE: 07/17/19 ATTN: Irene Mccabe Obi Please exercise your independent, professional judgment in responding to the clarification form. Clinical indicators are provided on the bottom of this form for your review Please check appropriate box(s): [ ] Acute Respiratory Failure: [ ] with Hypoxia[ ] with Hypercapnia [ ] Acute On Chronic Respiratory Failure: [ ] with Hypoxia [ ] with Hypercapnia [ ] Acute Respiratory Failure due to: (etiology) [ ] ARDS (Acute Respiratory Distress Syndrome) [ ] Chronic Respiratory Failure only [ ] with Hypoxia [ ] with Hypercapnia [ ] Hypoxia [ ] Other diagnosis [ ] Unable to determine In addition, please specify: Present on Admission (POA): [ ] Yes [ ] No [ ] Unable to determine For continuity of documentation, please document condition throughout progress notes and discharge summary. Thank You. CLINICAL INDICATORS - SIGNS / SYMPTOMS / LABS H&P p1 07/08 Dr Jeffery She felt weak and lightheaded H&P p2 07/08- vital sign: BP110/62 H&P p2 07/08 Latia She is lethargic and has acute metabolic encephalopathy with underlying dementia contributing with GI bleed now TTE p1 07/09 Indications: SOB Vital sign 07/08 2232 O2 sat 95% on 2L O2 P/F = 285 Vital sign 07/09 2005 O2 sat 94% 2L O2 P/F = 260 Vitalo sign 07/10 1220 O2 sat 90% Room Air P/F = 290 RISK FACTORS H&P p2 11/5- 88 year-old female H&P p2 07/08- Acute blood loss anemia TREATMENTS: Respiratory panel 07/09 O2 of 2 liters per min via Nasal Cannula Ordered 07/09 For TTE (This form is maintained as a part of the permanent medical record) 2014 [employer]. All Rights Reserved [email or web address] [not provided] MTDD
== END 2019-07-11 00:46 | disposition expired | DRG 377 ==
LOC: ERS 14:51 → T4-B 20:08 → 2SE 07-10 11:53
PROVIDERS: ADMIT Internal Medicine; ATTEND Internal Medicine
DX: K92.1 Melena (principal); G93.41 Metabolic encephalopathy; D62 Acute posthemorrhagic anemia; N17.9 Acute kidney failure, unspecified; I42.9 Cardiomyopathy, unspecified; M48.54XA Collapsed vertebra, not elsewhere classified, thoracic region, initial encounter for fracture; Z66 Do not resuscitate; I65.21 Occlusion and stenosis of right carotid artery; F03.90 Unspecified dementia, unspecified severity, without behavioral disturbance, psychotic disturbance, mood disturbance, and anxiety; E78.5 Hyperlipidemia, unspecified; I25.10 Atherosclerotic heart disease of native coronary artery without angina pectoris; K21.9 Gastro-esophageal reflux disease without esophagitis; Z96.653 Presence of artificial knee joint, bilateral; Z96.641 Presence of right artificial hip joint; I48.0 Paroxysmal atrial fibrillation; I08.1 Rheumatic disorders of both mitral and tricuspid valves; I27.20 Pulmonary hypertension, unspecified; I50.9 Heart failure, unspecified; R00.1 Bradycardia, unspecified; Z90.49 Acquired absence of other specified parts of digestive tract; Z95.5 Presence of coronary angioplasty implant and graft; Z79.899 Other long term (current) drug therapy; Z79.82 Long term (current) use of aspirin; Z79.02 Long term (current) use of antithrombotics/antiplatelets; Z88.2 Allergy status to sulfonamides; Z96.82 Presence of neurostimulator; Z86.73 Personal history of transient ischemic attack (TIA), and cerebral infarction without residual deficits
CPT/HCPCS: 36415; 36416; 70450; 70496; 70498; 80048; 80053; 82550; 82553; 83880; 84484; 85027; 85610; 85730; 86850; 86900; 86901; 93005; 93010; 93306; 96365; 96366; 96375; 96376; C9113; J1650; J2354; J3490; J7050; Q9967